=== PATIENT | female | born 1995 | race Caucasian/White ===

== ENCOUNTER 2019-10-28 02:42 | Emergency (ER) | payer OTHER ==
[~2019-10-28] VITALS: Ht 167.6 cm; Wt 65.3 kg
[2019-10-28] MEDS ORDERED: HYDROCODONE/APAP 5-325MG TABLET PO ONE (03:30)
[2019-10-28] MEDS ORDERED: HYDROCODONE/APAP 5-325MG TABLET ONE (03:35)
--- NOTE | 2019-10-28 03:50 | NUR ---
Patient discharged to home in stable conditon. Written and verbal after care instructions given. Patient verbalizes understanding of instructions. Pt able to walk out of ER with stable gait. No acute distress noted.
[2019-10-28 03:51] VITALS: BP 145/78
== END 2019-10-28 03:53 | disposition home or self-care (01) ==
LOC: ER 02:45
DX: M79.602 Pain in left arm (principal); R07.89 Other chest pain; N94.9 Unspecified condition associated with female genital organs and menstrual cycle
CPT/HCPCS: 71045; 93005; A4663